=== PATIENT | female | born 1965 ===

== ENCOUNTER 2018-08-09 15:19 | Emergency (ER) | payer OTHER ==
[2018-08-09 15:37] VITALS: BP 168/91; PULSE 70; RESP 18; TEMP 99.1; O2SAT 97
--- NOTE | 2018-08-09 16:27 | C.PDOC ---
History Of Present Illness 53 year old female presents to the ED for evaluation of bilateral trapezius pain and occipital contusion s/p injury sustained 1 day ago. Patient reports a piece of ceiling plaster fell on her while cooking. Denies fever, vision changes, LOC, headache, change in mental status, and any other associated symptoms. Time Seen by Provider: 08/09/18 16:00 Chief Complaint (Nursing): Headache History Per: Patient History/Exam Limitations: no limitations Onset/Duration Of Symptoms: Hrs Current Symptoms Are (Timing): Still Present Past Medical History Reviewed: Historical Data, Nursing Documentation, Vital Signs Vital Signs: Last Vital Signs Temp 99.1 F 08/09/18 15:34 Pulse 70 08/09/18 15:34 Resp 18 08/09/18 15:34 BP 168/91 H 08/09/18 15:34 Pulse Ox 97 08/09/18 15:34 Family History: States: Unknown Family Hx - Social History Hx Alcohol Use: No Hx Substance Use: No - Immunization History Hx Tetanus Toxoid Vaccination: No Hx Influenza Vaccination: No Hx Pneumococcal Vaccination: No Review Of Systems Except As Marked, All Systems Reviewed And Found Negative. Constitutional: Negative for: Fever Eyes: Negative for: Vision Change Musculoskeletal: Positive for: Back Pain (of bilateral trapezius pain.) Skin: Positive for: Other (occipital contusion.) Neurological: Negative for: Headache, Other ((-) LOC. (-) changes in mental st atus. ) Physical Exam - Physical Exam Appears: Well, Non-toxic Skin: Normal Color, Warm, Dry Head: Normacephalic, No Swelling, No Abrasion, No Laceration, Other (No contusion noted to occipital region.) Eye(s): bilateral: PERRL Oral Mucosa: Moist Neck: Normal ROM, Trachea Midline, Supple Respiratory: Other (no acute respiratory distress.) Back: Other (bilateral trapezius tenderness and strain.) Extremity: Normal ROM (x4) Neurological/Psych: Oriented x3, Normal Speech, Normal Cognition, Normal Motor, Normal Sensation, Normal Reflexes ED Course And Treatment O2 Sat by Pulse Oximetry: 97 (RA) Pulse Ox Interpretation: Normal Medical Decision Making Medical Decision Making: piece of ceiling plaster hit back of head last night while cooking no sig head/brain injury risk + whiplash strain sprain ice nsaids Plan: -Tylenol Motrin Progress/Update: Patient stable for discharge home. Disposition Doctor Will See Patient In The: Office Counseled Patient/Family Regarding: Studies Performed, Diagnosis - Disposition Referrals: [facility] [Outside] [facility] [Outside] [facility] [Outside] [place] [email or web address] [Outside] Disposition: HOME/ ROUTINE Disposition Time: 16:27 Condition: GOOD Additional Instructions: [place] 1/2 hora por hora, nada caliente Ibuprofeno 400-600 mg cada 6 horas flip necessario para dolor NO MANISHA GISELLE CALIENTE! Instructions: Whiplash, Head Injury (ED) Forms: [facility] (Slovenian) Print Language: MOHAWK - Clinical Impression Clinical Impression: Contusion of head - Scribe Statement The provider has reviewed the documentation as recorded by the Scribe (Britt Becker) Provider Attestation: All medical record entries made by the Scribe were at my direction and personally dictated by me. I have reviewed the chart and agree that the record accurately reflects my personal performance of the history, physical exam, medical decision making, and the department course for this patient. I have also personally directed, reviewed, and agree with the discharge instructions and disposition.
== END 2018-08-09 16:32 | disposition home or self-care (01) ==
LOC: C.ER 15:19
DX: S00.03XA Contusion of scalp, initial encounter (principal); W22.8XXA Striking against or struck by other objects, initial encounter; Y93.G3 Activity, cooking and baking